=== PATIENT | male | born 1965 | race Caucasian/White ===

== ENCOUNTER → 2017-10-22 07:56 | Outpatient (CLI) | payer OTHER, SELFPAY ==
--- NOTE | 2017-10-22 07:59 | CT_ITS ---
STUDY: CTA CHEST REASON FOR EXAM: Male, 52 years old. 3 week history of left-sided chest pain and cough. RADIATION DOSAGE (If Supplied By Facility): CTDIvol = ( 13.82 ) mGy, DLP = ( 674.41 ) mGycm TECHNIQUE: The examination was performed with the intravenous administration of 100 ml of Isovue 370 contrast material. Post-processing of the angiographic images was performed, with multiplanar reformation and 3D reconstruction. Individualized dose optimization techniques were used for this CT. COMPARISON: None. FINDINGS: Normal enhancement of the main pulmonary artery and right and left pulmonary arteries. Normal enhancement of the bilateral peripheral pulmonary arteries. There is no demonstrated pulmonary embolism. Normal thoracic aorta and visualized great vessels. There is no demonstrated aortic dissection. Normal heart and pericardium. Normal mediastinum. Normal hilar regions. Normal visualized trachea and bronchi. The lungs are well expanded. 35.1 mm calcified granuloma in the peripheral lateral aspect of the right lower lobe. Normal pleura. Normal chest wall structures. Normal osseous structures. The patient is status post cholecystectomy. CT/CTA Chest W/WO Contrast IMPRESSION: No acute abnormality is seen. Electronically Signed: Livan Truong MD at 10:39 EDT Tel [phone], Service support ,
== END ==
PROVIDERS: Family Provider Family Medicine; PCP Family Medicine; Visit Provider Family Medicine
DX: R07.9 Chest pain, unspecified (principal)
CPT/HCPCS: 71275

== ENCOUNTER 2018-02-17 10:23 | Emergency (ER) | payer OTHER, SELFPAY ==
[2018-02-17 10:24] VITALS: BP 175/105; PULSE 69; RESP 17; TEMP 36.5; O2SAT 96; BMI 29.2
--- NOTE | 2018-02-17 10:39 | CT_ITS ---
STUDY: CT BRAIN WITHOUT CONTRAST REASON FOR EXAM: Male, 52 years old. Headaches. Nosebleed. RADIATION DOSAGE (If Supplied By Facility): CTDIvol = ( 60.81 ) mGy, DLP = ( 1044.28 ) mGycm TECHNIQUE: Transaxial CT imaging of the brain was performed without administration of intravenous contrast material. Individualized dose optimization techniques were used for this CT. COMPARISON: None. FINDINGS: Normal soft tissue structures. Normal calvarium. Normal size ventricles and extra-axial spaces for the patient's age. Normal white matter tracts of the cerebral hemispheres. Normal basal ganglia and thalami. Normal brainstem. Normal cerebellum. There is no intracranial hemorrhage. There are no findings of an acute ischemic infarction. Normal visualized paranasal sinuses. CT/Brain/Head without Contrast IMPRESSION: Normal unenhanced CT scan of the brain. Electronically Signed: Livan Truong MD at 12:33 EDT Tel [phone], Service support ,
--- NOTE | 2018-02-17 10:40 | EKG12_ITS ---
Test Reason : HIGH BP Blood Pressure : / mmHG Vent. Rate : 069 BPM Atrial Rate : 069 BPM P-R Int : 164 ms QRS Dur : 084 ms QT Int : 410 ms P-R-T Axes : 031 056 028 degrees QTc Int : 439 ms Normal sinus rhythm Normal ECG Confirmed by JERED RAZO, SUZE ([id number]), image editor GURDEEP JACKSON ([id number]) on 02/23/2018 9:15:59 AM Referred By: FLO Confirmed By:SUZE LAWTON MD
[2018-02-17 11:09] LABS: Absolute Lymphocyte Count 1.29 X10^3/ul (0.83-4.51); Absolute Neutrophil Count 4.6 X10^3/uL (2.0-7.7); Basophil# 0.02 X10^3/uL; Basophil% 0.3 % (0-1); Eosinophil# 0.32 X10^3/uL; Eosinophils% 4.7 % (0-5); Hematocrit 42.2 % (40-54); Hemoglobin 14.9 g/dl (13.0-16.5); Lymphocyte # 1.29 X10^3/ul (4.0); Mean Corp Hgb Conc 35.3 g/gl (32-36); Mean Corpuscular Hgb 30.1 pg (27.0-32.0); Mean Corpuscular Volume 85.3 fL (80-94); Mean Platelet Vol. 10.3 fl (6.2-12.0); Monocyte# 0.55 X10^3/uL; Monocyte% 8.1 % (0-10); Neutrophil # 4.61 X10^3/uL (2.7-7.7); Neutrophil % 67.8 % (47-70); Platelet Count 223 K/mm3 (150-450); Red Blood Count 4.95 M/mm3 (4.6-6.2); White Blood Count 6.8 K/mm3 (4.4-11.0)
[2018-02-17 11:11] LABS: POSITIVE COUNT NO; POSITIVE DIFFERENTIAL NO; POSITIVE MORPHOLOGY NO
--- NOTE | 2018-02-17 11:30 | RAD_ITS ---
STUDY: X-RAY CHEST REASON FOR EXAM: Male, 52 years old. Cough headaches and palpitations. TECHNIQUE: PA and lateral views of the chest. COMPARISON: Comparison is made with prior study of December 28, 2016. FINDINGS: EKG electrodes are seen. The lungs are clear and expanded. Scattered calcified granuloma. There is no demonstrated pleural abnormality. Normal size heart. Normal mediastinum and brock. Normal visualized pulmonary arteries. Normal visualized aortic arch and descending thoracic aorta. Normal visualized thoracic spine. Normal visualized ribs, clavicles, and shoulders. There is no demonstrated abnormality of the visualized soft tissue structures of the upper abdomen. RAD/Chest PA and Lateral IMPRESSION: Normal x-ray examination of the chest. Scattered calcified granulomas. Electronically Signed: Livan Truong MD at 12:34 EDT Tel [phone], Service support ,
[2018-02-17 11:31] LABS: ALB/GLOB Ratio 1.1 RATIO (0.9-2.4); AST(SGOT) 18 U/L (15-37); Alanine Aminotransfer ALT/SGPT 30 U/L (16-61); Alkaline Phosphatase 81 U/L (45-117); Anion Gap 8 (5-15); BUN 15 mg/dL (7-18); Calcium,Total 8.8 mg/dL (8.5-10.1); Chloride 103 mmol/L (98-107); Creatinine, Serum 0.88 mg/dL (0.70-1.30); EST Glomerular Filtration Rate 95 mL/min (>60); Est Glom Filt Rate - Afr Amer 115 mL/min (>60); Estimated Creatinine Clearance 99.08 ml/min; Globulin 3.6 g/dL (2.2-4.2); Glucose 99 mg/dL (74-106); Potassium 3.6 mmol/L (3.5-5.1); Protein, Total 7.6 g/dL (6.4-8.2); Sodium Level 136 mmol/L (136-145); Thyroid Stim Hormone (TSH) 1.23 uIU/mL (0.358-3.74)
[2018-02-17 11:57] VITALS: BP 181/99; PULSE 71; RESP 16; O2SAT 96
[2018-02-17] MEDS: DiphenhydrAMINE 50 MG/ML Syringe 25 MG IV (12:07)
[2018-02-17] MEDS: proCHLORPERazine 10 MG/2 ML Vial IV (12:07)
[2018-02-17] MEDS: LORazepam 2 MG/ML Syringe 1 MG IV (12:44)
--- NOTE | 2018-02-17 12:56 | ED.VISSUMM ---
- ER Visit Summary Date of Service: 02/17/18 Chief Complaint: High blood pressure History of Present Illness: The patient is a 52 M with no previous history of hypertension presenting with headache and elevated blood pressure. He has been under a lot of stress at work recently and feels that this may be contributing. He denies history of depression or any suicidal thoughts/ideation. He is blood pressure has always been normal in the past. He also notes that he has been having frequent epistaxis and has no previous history of this. He saw an ear nose throat physician yesterday and had cautery. Physical Examination: His blood pressure is 175/105. Other vitals are within normal limits. He is not in distress. Neurologic exam is normal. Normal thought content. No suicidal thoughts or ideation. Test Results: EKG unremarkable. Troponin negative. Creatinine normal. Labs all within normal limits. CT brain negative and chest x-ray clear. No evidence of endorgan damage. Emergency Department Course and Treatment: He was given IV labetalol-5 mg as well as 1 mg of IV Ativan. He was observed and his blood pressure normalized while he was here in the department. His most recent repeat was still slightly elevated however at 155 systolic. I had an extensive discussion with him and he would prefer to be started on a low-dose blood pressure medication and follow-up closely with his doctor. I did place a page to his physician to speak with the on-call doctor to arrange close follow-up but he would prefer not to wait and is going to call there today to get something set up within the next week. 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 He will return if he has any recurrence of symptoms. His headache completely resolved with treatment here. He looks well and is resting comfortably on reexamination. Treatment Plan: Oral Diovan 160/12.5 close follow-up with his doctor Disposition: Home stable condition Impression: Initial encounter poorly controlled hypertension-new diagnosis This note was generated with [employer] dictation software. It may contain incorrect words, spelling, and punctuation that were not noted in review of the chart prior to signing ED Disposition - Plan for ED Patient: Chief Complaint: Hypertension Instructions: ED Hypertension New Begin Tx, ED Hypertension Conf Out Of Control Prescriptions: Valsartan/Hydrochlorothiazide [Diovan Hct 160-12.5 mg Tab] 1 each PO DAILY #30 tablet Referrals: Sj Dickerson MD [Primary Care Provider] -
[2018-02-17 13:23] VITALS: BP 157/88; PULSE 68; RESP 14; O2SAT 98
[2018-02-17 14:01] VITALS: BP 143/79; PULSE 61; RESP 15; O2SAT 98
== END 2018-02-17 14:02 | disposition home or self-care (01) ==
LOC: ED 11:23
PROVIDERS: Emergency Provider Emergency Medicine; Family Provider Family Medicine; PCP Family Medicine
DX: I10 Essential (primary) hypertension (principal)
CPT/HCPCS: 70450; 71046; 80053; 84443; 84484; 85025; 93005; 96374; 96375; 99284; A4216

== ENCOUNTER 2021-06-13 06:02 | Day surgery (SDC) | payer BC, SELFPAY ==
[2021-06-13] VITALS (8 sets, daily range): BP systolic 120–140; BP diastolic 79–95; PULSE 67–72; RESP 14–16; TEMP 36–36.6; O2SAT 97–100; BMI 27.5
--- NOTE | 2021-06-13 06:11 | HP.PCM_ITS ---
HPI - General HPI Narrative ELISE RYAN, is a 56 M who presents via open access for colonoscopy. He has a personal history of colon polyps. His last colonoscopy was performed at [facility]. He also has a family history with a father who had colon cancer. February 2021 the patient did have COVID-19. At that point he had not been vaccinated. He did not require hospitalization. He did not require monoclonal antibody. He feels that he has recovered from that event. [facility] Medical History (Updated 06/13/21 @ 06:[address] Sj Gold MD) Former smoker History of stress test Hypertension Wears glasses Home Medications Lactobacillus acidophilus [Probiotic] 10,000 mmu cells PO DAILY 06/10/21 [History Last Taken Unknown] ascorbic acid (vitamin C) [Vitamin C] 500 mg PO DAILY 06/10/21 [History Last Taken Unknown] mike mthf-vuiyukcu-oletodxys ac [Nokomis Oil] 1 cap PO DAILY 06/10/21 [History Last Taken Unknown] valsartan-hydrochlorothiazide 1 tab PO DAILY 06/10/21 [History Last Taken Unknown] Allergy/AdvReac Type Severity Reaction Status Date / Time No Known Allergies Allergy Verified 06/10/21 14:53 Surgical History (Updated 06/10/21 @ 15:02 by Estefania Serrano) History of cardiac catheterization Hx laparoscopic cholecystectomy Hx of colonoscopy Social History Smoking Status: Former smoker ROS Constitutional Constitutional: Reports systems reviewed and no addt'l complaints, except as documented Cardiovascular Cardiovascular: Denies chest pain Respiratory/Chest Respiratory/Chest: Denies shortness of breath at rest Gastrointestinal Gastrointestinal: Denies abdominal pain, change in bowel habits, hematochezia or melena Physical Exam Const alert, oriented x3 and no apparent distress General Appearance: cooperative and comfortable Eyes General Eye: normal appearance of both eyes Neck General: normal visual inspection Chest inspection of chest normal Resp Effort and Inspection: able to speak in complete sentences and symmetric chest movement Auscultation: clear to auscultation bilaterally Cardio regular rate and regular rhythm GI soft to palpation, non-tender and non-distended Extremity no calf tenderness Neuro oriented x3 Psych thought process normal Results Lab / Micro Data Micro: Microbiology 06/12/21 14:20 Interface Orders SARS-CoV-2 Antigen (Rapid) - Final Assessment & Plan Assessment/Plan (1) Personal history of colonic polyps: (2) Family history of colon cancer in father: PLAN: The patient presents via open access today. We plan to proceed with a colonoscopy with possible biopsy or polypectomy as indicated. He is aware of the technique, benefit, risk and alternatives. He has had an opportunity to ask and have questions answered. We will proceed as noted. Sj Gold M.D., F.A.C.S.
[2021-06-13] MEDS: Midazolam 5 MG/ML Syringe (07:08)
--- NOTE | 2021-06-13 07:15 | COLBX_PTH ---
PATIENT: ELISE RYAN LOC: EN U#:[id number] AGE/SX: 56/M ROOM: RE06/13/[address]: Dr. Sj Gold MD : 1965 BED: DIS: 06/13/2021 SPEC #: [id number] RECD: 06/13/21 11:34 STATUS: JESSE GUERRA #: [id number] PHILIP: 06/13/21 07:[address]: Sj Gold DEPT: SURGICAL PATHOLOGY RECD BY: Neyda Baxter ENTERED: 06/13/21 12:39 SP TYPE: COLON BX OTHR DR: Zohreh Guerrero, UNEMPLOYMENT EXAMINER-C Tissues: A - Sigmoid colon biopsy B - Sigmoid colon biopsy Procedures: Surgery Specimen Level IV HEADER OPERATION: Colonoscopy ? open access (MOD) PRE-OP DIAGNOSIS: History colonic polyps TISSUE SUBMITTED: A ? Biopsy of proximal sigmoid polyp, B - Biopsy of distal sigmoid polyp MICROSCOPIC DIAGNOSIS A. Proximal sigmoid polyp, biopsy: Fragments of colonic mucosa, no pathologic diagnosis, B. Distal sigmoid polyp, biopsy: Hyperplastic polyp. GERARDO:louis 06/16/2021 MICROSCOPIC DESCRIPTION Slides are reviewed. GROSS DESCRIPTION A - Received in fixative is one container labeled with the patient's name and designated biopsy of proximal sigmoid polyp. The specimen consists of multiple irregular fragments of light saini soft tissue that in aggregate measure 1.2 x 0.2 x 0.1 cm. The specimen is totally submitted in one cassette. B - Received in fixative is one container labeled with the patient's name and designated biopsy of distal sigmoid polyp. The specimen consists of multiple irregular fragments of light saini soft tissue that in aggregate measure 1 x 0.3 x 0.1 cm. The specimen is totally submitted in one cassette. / GERARDO:louis 06/13/2021 TC:1 CPT: 01226 x2
--- NOTE | 2021-06-13 07:46 | OP.COLON_ITS ---
Patient Name: Jose Carlos Mcgee Procedure Date: 06/13/2021 7:12 AM Date of : 1965 Age: 56 Procedure: Colonoscopy Indications: High risk colon cancer surveillance: Personal history of colonic polyps, Family history of colon cancer in a first-degree relative Providers: Sj Gold MD Medicines: Midazolam 4 mg IV, Meperidine 100 mg IV Patient Profile: Last Colonoscopy: 5 years ago. Complications: No immediate complications. Procedure: Pre-Anesthesia Assessment: - Prior to the procedure, a History and Physical was performed, and patient medications and allergies were reviewed. The patient's tolerance of previous anesthesia was also reviewed. The risks and benefits of the procedure and the sedation options and risks were discussed with the patient. All questions were answered, and informed consent was obtained. Prior Anticoagulants: The patient has taken no previous anticoagulant or antiplatelet agents. ASA Grade Assessment: II - A patient with mild systemic disease. After reviewing the risks and benefits, the patient was deemed in satisfactory condition to undergo the procedure. After I obtained informed consent, the scope was passed under direct vision. Throughout the procedure, the patient's blood pressure, pulse, and oxygen saturations were monitored continuously. The Colonoscope was introduced through the anus and advanced to the cecum, identified by appendiceal orifice and ileocecal valve. The colonoscopy was somewhat difficult due to multiple diverticula in the colon. The patient tolerated the procedure well. The quality of the bowel preparation was good. The ileocecal valve and the appendiceal orifice were photographed. Moderate Sedation: Moderate (conscious) sedation was personally administered by the endoscopist. The following parameters were monitored: oxygen saturation, heart rate, blood pressure, and response to care. Total physician intraservice time was 15 minutes. Scope In: 7:19:20 AM Scope Withdrawal Time 0 hours 15 minutes 35 seconds Scope Out: 7:39:43 AM Total Procedure Duration Time 0 hours 20 minutes 23 seconds Findings: Hemorrhoids were found on perianal exam. Normal prostate A 4 mm polyp was found in the proximal sigmoid colon. The polyp was sessile. The polyp was removed with a cold biopsy forceps. Resection and retrieval were complete. A 3 mm polyp was found in the distal sigmoid colon. The polyp was sessile. The polyp was removed with a cold biopsy forceps. Resection and retrieval were complete. Multiple diverticula were found in the entire colon. The exam was otherwise without abnormality. Impression: - Hemorrhoids found on perianal exam. - One 4 mm polyp in the proximal sigmoid colon, removed with a cold biopsy forceps. Resected and retrieved. - One 3 mm polyp in the distal sigmoid colon, removed with a cold biopsy forceps. Resected and retrieved. - Diverticulosis in the entire examined colon. - The examination was otherwise normal. Recommendation: - Discharge patient to home. - Resume previous diet. - Continue present medications. - Repeat colonoscopy in 5 years for surveillance based on pathology results. - Telephone my office for pathology results in 1 week. Procedure Code(s): --- Professional --- 78201, Colonoscopy, flexible; with biopsy, single or multiple 89693, 59, Moderate sedation services provided by the same physician or other qualified health resident care aid performing the diagnostic or therapeutic service that the sedation supports, requiring the presence of an independent trained observer to assist in the monitoring of the patient's level of consciousness and physiological status; initial 15 minutes of intraservice time, patient age 5 years or older Diagnosis Code(s): --- Professional --- Z86.010, Personal history of colonic polyps K64.9, Unspecified hemorrhoids D12.5, Benign neoplasm of sigmoid colon Z80.0, Family history of malignant neoplasm of digestive organs K57.30, Diverticulosis of large intestine without perforation or abscess without bleeding CPT copyright 2017 [employer]. All rights reserved. The codes documented in this report are preliminary and upon hi teacher review may be revised to meet current compliance requirements. Sj Gold MD 06/13/2021 7:46:03 AM This report has been signed electronically. Number of Addenda: 0 Note Initiated On: 06/13/2021 7:12 AM
[2021-06-13] MEDS: Lactated Ringers 1,000 ML 15 ML IV (08:13)
== END 2021-06-13 23:59 | disposition home or self-care (01) ==
LOC: EN 06:04 → AC 06:05
PROVIDERS: PCP Nurse Practitioner Primary Care; Referring Provider Nurse Practitioner Primary Care; Visit Provider Surgery
PROC: 0DJD8ZZ Inspection of Lower Intestinal Tract, Via Natural or Artificial Opening Endoscopic (ICD-10-PCS; CPT 45378; principal; 2021-06-13 07:10)
DX: Z12.11 Encounter for screening for malignant neoplasm of colon (principal); D12.5 Benign neoplasm of sigmoid colon; K57.30 Diverticulosis of large intestine without perforation or abscess without bleeding; K64.9 Unspecified hemorrhoids; I10 Essential (primary) hypertension; Z79.899 Other long term (current) drug therapy; Z86.010 Personal history of colon polyps; Z87.891 Personal history of nicotine dependence; Z86.16 Personal history of COVID-19; Z20.822 Contact with and (suspected) exposure to COVID-19; Z80.0 Family history of malignant neoplasm of digestive organs
CPT/HCPCS: 45380; 87426; 88305; 99152; 99153; C9803; J7120